=== PATIENT | male | born 1995 | race Two or more races ===

== ENCOUNTER 2024-03-21 23:35 | Emergency (ER) | payer OTHER ==
[~2024-03-21] VITALS: Ht 185.4 cm; Wt 93.0 kg
[2024-03-22] MEDS ORDERED: TETANUS & DIPHTHERIA TOX,ADULT 0.5 ML VIAL IM STA (01:05)
[2024-03-22] MEDS ORDERED: CLINDAMYCIN PHOSPHATE 150 MG/ML (600mg) IM STA (01:06)
[2024-03-22] MEDS ORDERED: KETOROLAC TROMETHAMINE 60 MG VIAL IM STA (01:06)
== END 2024-03-22 01:34 | disposition home or self-care (01) ==
LOC: ER 23:36
DX: S60.571A Other superficial bite of hand of right hand, initial encounter (principal); W54.0XXA Bitten by dog, initial encounter; Y93.89 Activity, other specified; Y92.89 Other specified places as the place of occurrence of the external cause; Y99.8 Other external cause status